=== PATIENT | female | born 1940 | race Caucasian/White ===

== ENCOUNTER → 2019-01-22 | Outpatient (CLI) | payer OTHER ==
[~2019-01-22] MED LIST: ACIDOPHILUS LA1 EACH PO; ACIDOPHILUS W/P1 CAP PO; ALDACTONE25 M1 PO; ALDACTONE25 MG PO; ALPHAGAN-P 0.2%5 ML INTRAOC; ANUSOL HC30 GM PO; AZELASTINE HYDRO6 M1 OU; AZELASTINE OP; B-121000 MCG IM; BACTRIM DS 8001 TA1 PO; CALCIUM ANTACI500 MG PO; CIPROFLOXACIN500 MG PO; CYCLOBENZAPRINE10 MG PO; DAILY MULTIPLE1 TA6 PO; DITROPAN XL10 MG PO; DITROPAN XL5 MG PO; DONNATAL1 CA1; ELIQUIS5 M1 PO; FOLIC ACID1 MG PO; GLIPIZIDE XL2.5 M1 PO; IRON324 M1 PO; K-DUR 20MEQ20 MEQ; K-DUR20 MEQ PO; LASIX40 MG PO; LEVAQUIN250 M1 PO; LEVOTHYROXIN0.125 MG PO; LOMOTIL 0.025 M1 TA1 PO; LUMIGAN 2.5 ML2.5 ML; LUMIGAN 2.5 ML2.5 ML OPH; Levaquin PO; MACROBID100 M1 PO; MACRODANTIN100 M1 PO; MAG-OX 400400 MG PO; MIRALAX17 GM PO; MULTI VITAMINS1 TAB; MYLANTA PO; NEXIUM40 MG PO; NORCO 5-325 TA1 EACH PO; OPTIVE 0.5%-0.915 ML OP; PAXIL20 MG PO; PLAVIX75 MG; POTASSIUM CHLO10 ME4 PO; POTASSIUM CHLO20 ME3 PO; PRAD75 PO; PRADAXA150 MG PO; PRILOSEC40 MG PO; PRODAXA PO; PROSOURCE PLUS946 ML; ROBITUSSIN DM120 ML PO; SULFASALAZINE500 M1 PO; SYNTHROID,LEV150 MCG PO; TRAMADOL HCL50 MG PO; TYLENOL EXTRA500 M2 PO; TYLENOL500 MG PO; VITAMIN D400 I1 PO; VITAMIN D400 UNI1 PO; ZANTAC 300300 MG PO; [UNRECOGNIZED DRUG - OTHER] PO; lasix PO
== END ==
LOC: ORTHO 01:14
DX: M25.561 Pain in right knee (principal)

== ENCOUNTER → 2019-04-01 | Outpatient (CLI) | payer OTHER | END | disposition home or self-care (01) | LOC: ORTHO 01:31 | DX: M25.562 Pain in left knee (principal); M24.562 Contracture, left knee; Z96.652 Presence of left artificial knee joint ==

== ENCOUNTER → 2019-09-26 | Outpatient (CLI) | payer OTHER, MEDICAID | END | disposition home or self-care (01) | LOC: CT 00:13 | DX: N20.0 Calculus of kidney (principal); J90 Pleural effusion, not elsewhere classified; J98.11 Atelectasis; N26.1 Atrophy of kidney (terminal); K46.9 Unspecified abdominal hernia without obstruction or gangrene; K57.30 Diverticulosis of large intestine without perforation or abscess without bleeding; M47.896 Other spondylosis, lumbar region; Z90.49 Acquired absence of other specified parts of digestive tract ==

== ENCOUNTER 2021-03-23 12:11 | Inpatient (IN) | payer OTHER, MEDICAID ==
[~2021-03-23] VITALS: Ht 157.4 cm; Wt 88.3 kg
[2021-03-23 12:13] VITALS: BP 114/71
[2021-03-23 12:46] LABS: HEMATOCRIT 36.3 % (37.0-47.0); MEAN CELL VOLUME 95.3 fl (81.0-99.0); MEAN CORPUSCULAR HGB CONC 32.5 g/dl (33.0-37.0); MEAN PLATELET VOLUME 11.9 fl (9.6-12.3); PLATELET COUNT AUTOMATED 83 10*3/uL (130-400); RED BLOOD COUNT 3.81 10*6/uL (4.10-5.10); RED CELL DISTRI WIDTH 12.8 % (0-14.5)
[2021-03-23 12:59] LABS: ALBUMIN 2.8 gm/dl (3.1-4.5); CREATININE 1.88 mg/dL (0.55-1.02); POTASSIUM 4.3 mmol/L (3.5-5.1); TOTAL PROTEIN 5.9 gm/dL (6.4-8.2)
[2021-03-23 13:02] LABS: PLATELET SUFFICIENCY LOW (NORMAL); TOTAL CELLS COUNTED 100 #CELLS
[2021-03-23 13:04] LABS: TROPONIN I 6.31 ng/ml (<0.045)
[2021-03-23 13:08] VITALS: BP 117/73
[2021-03-23 13:36] LABS: BILIRUBIN Negative (Negative); BLOOD 1+ (Negative); CLARITY Cloudy (Clear); COLOR Dark Yellow (Yellow); GLUCOSE Negative (Negative); KETONE Negative (Negative); LEUKO ESTERASE 2+ (Negative); NITRITE Positive (Negative); PH 7.5 (4.5-8.0); SPECIFIC GRAVITY 1.015 (1.001-1.030)
[2021-03-23] MEDS ORDERED: ALDACTONE25 M1 PO (13:56)
[2021-03-23] MEDS ORDERED: NATURE'S BLEND F1 MG PO (13:58)
[2021-03-23] MEDS ORDERED: FERROUS SULFAT325 MG PO (13:58)
[2021-03-23] MEDS ORDERED: LASIX40 MG PO (14:01)
[2021-03-23 14:02] LABS: BACTERIA 4+; WBC 21-30 wbc/hpf (0-5)
[2021-03-23] MEDS ORDERED: MIRALAX17 GM PO (14:02)
[2021-03-23] MEDS ORDERED: MELATONIN3 MG PO (14:02)
[2021-03-23] MEDS ORDERED: REQUIP0.25 M1 PO (14:04)
[2021-03-23] MEDS ORDERED: Synthroid,Lev125 MCG PO (14:05)
[2021-03-23] MEDS ORDERED: TAGAMET HB200 M1 PO (14:06)
[2021-03-23] MEDS ORDERED: XALATAN 2.5 ML2.5 ML OP (14:07)
[2021-03-23] MEDS ORDERED: XARE20MG PO (14:07)
[2021-03-23] MEDS ORDERED: Zaroxolyn,Diul2.5 MG PO (14:08)
[2021-03-23] MEDS ORDERED: ALPHAGAN P 5 ML5 ML OP (14:09)
[2021-03-23] MEDS ORDERED: POTASSIUM CHLO10 ME4 PO (14:12)
[2021-03-23] MEDS ORDERED: MULTIPLE VITAM1 EAC2 PO (14:13)
[2021-03-23] MEDS ORDERED: Oscal,Oyster S500 MG PO (14:14)
[2021-03-23] MEDS ORDERED: ACIDOPHILUS1 EAC4 PO (14:14)
[2021-03-23] MEDS ORDERED: EFFER-K10 MEQ PO (14:15)
[2021-03-23] MEDS ORDERED: AZULFIDINE ENT500 MG PO (14:16)
[2021-03-23] MEDS ORDERED: REFRESH TEARS15 ML OP (14:18)
[2021-03-23] MEDS ORDERED: LEVOTHYROXINE150 MC1 PO (14:59)
[2021-03-23] MEDS ORDERED: PAROXETINE20 MG PO (15:00)
[2021-03-23 16:00] VITALS: BP 113/69
[2021-03-23] MEDS ORDERED: PHENAZOPYRIDIN100 M1 PO (16:58)
[2021-03-23] MEDS ORDERED: PRESERVISION A1 EAC3 PO (16:59)
[2021-03-23] MEDS ORDERED: BACID CAPLET1 EACH PO (17:00)
[2021-03-23] MEDS ORDERED: B121000 MCG/1 IM (17:02)
[2021-03-23 20:00] VITALS: BP 112/75
[2021-03-23 22:46] LABS: CREATININE 1.77 mg/dL (0.55-1.02)
[2021-03-24] VITALS: BP 99/58
[2021-03-24 01:05] VITALS: BP 108/73
[2021-03-24 05:51] LABS: ALBUMIN 2.7 gm/dl (3.1-4.5); CREATININE 1.93 mg/dL (0.55-1.02); FREE T4 1.27 ng/dl (0.76-1.46); POTASSIUM 3.9 mmol/L (3.5-5.1); TOTAL PROTEIN 5.6 gm/dL (6.4-8.2)
[2021-03-24 05:56] LABS: THYROID STIM HORMONE (HS) 1.36 uIU/ml (0.358-4.75)
[2021-03-24 05:58] LABS: TROPONIN I 12.6 ng/ml (<0.045)
[2021-03-24 06:23] LABS: ACT PARTIAL THROMBO TIME 45.6 SECONDS (20.0-32.1); INTERNATIONAL NORM RATIO 1.9 (2.0-3.5)
[2021-03-24 06:37] LABS: MEAN CORPUSCULAR HGB 31.3 pg (27.0-31.0); MEAN CORPUSCULAR HGB CONC 31.7 g/dl (33.0-37.0); MEAN PLATELET VOLUME 12.3 fl (9.6-12.3); PLATELET COUNT AUTOMATED 64 10*3/uL (130-400); RED BLOOD COUNT 3.64 10*6/uL (4.10-5.10); RED CELL DISTRI WIDTH 12.9 % (0-14.5); WHITE BLOOD COUNT 18.3 10*3/uL (4.8-10.8)
[2021-03-24 06:40] LABS: MEAN CELL VOLUME 98.9 fl (81.0-99.0)
[2021-03-24 07:54] LABS: PLATELET SUFFICIENCY LOW (NORMAL); TOTAL CELLS COUNTED 100 #CELLS
[2021-03-24 08:00] VITALS: BP 101/67
[2021-03-24 11:46] VITALS: BP 110/75
[2021-03-24 16:00] VITALS: BP 108/74
[2021-03-24 20:00] VITALS: BP 103/69
[2021-03-25] VITALS: BP 99/60
== END 2021-03-25 04:19 | DRG 871 ==
LOC: ED 12:11 → EDHOLD 13:35 → 5E 13:35
PROVIDERS: Emergency Medicine; Internal Medicine; Student in an Organized Health Care Education/Training Program; ADMIT Family Medicine; ATTEND Family Medicine
DX: A41.9 Sepsis, unspecified organism (principal); I21.4 Non-ST elevation (NSTEMI) myocardial infarction; G93.41 Metabolic encephalopathy; N17.0 Acute kidney failure with tubular necrosis; N39.0 Urinary tract infection, site not specified; E44.0 Moderate protein-calorie malnutrition; Z66 Do not resuscitate; Z51.5 Encounter for palliative care; R65.20 Severe sepsis without septic shock; D64.9 Anemia, unspecified; N18.9 Chronic kidney disease, unspecified; I48.91 Unspecified atrial fibrillation; R73.9 Hyperglycemia, unspecified; E83.41 Hypermagnesemia; Z96.652 Presence of left artificial knee joint; R74.01 Elevation of levels of liver transaminase levels; E03.9 Hypothyroidism, unspecified; I95.9 Hypotension, unspecified; Z88.8 Allergy status to other drugs, medicaments and biological substances; Z88.1 Allergy status to other antibiotic agents; Z79.899 Other long term (current) drug therapy; Z68.35 Body mass index [BMI] 35.0-35.9, adult